=== PATIENT | male | born 1990 | race Two or more races ===

== ENCOUNTER 2023-06-10 13:31 | Emergency (ER) | payer OTHER ==
[~2023-06-10] VITALS: Ht 167.6 cm; Wt 102.1 kg
[2023-06-10] MEDS ORDERED: IBUPROFEN 600 MG TABLET ONE (15:28)
[2023-06-10] MEDS ORDERED: IBUPROFEN 600 MG TABLET PO ONE (15:30)
[2023-06-10 18:38] VITALS: BP 134/93; TEMP 99.4; O2SAT 95
== END 2023-06-10 19:52 | disposition home or self-care (01) ==
LOC: ER 13:47
DX: U07.1 COVID-19 (principal); J02.9 Acute pharyngitis, unspecified
CPT/HCPCS: 86403-TC